=== PATIENT | male | born 1955 | race African-American/Black ===

== ENCOUNTER → 2016-10-02 | Outpatient (CLI) | payer MEDICARE ==
[~2016-10-02] MED LIST: ASPIRIN81 MG PO; AVANDAMET PO; BAYER CHEWABLE81 MG; BLOOD PRESSURE MED; CHOLESTEROL MED; FLEXERIL PO; FLEXERIL10 MG PO; GLUCOPHAGE; INSULIN SHOT; KEFLEX500 M1 PO; KETOPROFEN PO; LANTUS100 U/ML; LIPITOR PO; MOTRIN600 M1 PO; NORCO1 TAB 10/3 DOB; NORVASC PO; ORUDIS75 M1 PO; PEPCID AC20 M2 PO; ROBAXIN500 MG PO; VICODIN 5/1 TAB 5/50 PO; [UNRECOGNIZED DRUG - REMARK]
--- NOTE | ~2016-10-02 | US37 ---
[facility] A Service of [facility] RADIOLOGY TEXT RESULTS PATIENT: GIULIANA FLORES LOCATION: [facility] : 57 UNIT #: [id number] AGE: [address]: LEVY ECHEVARRIA SEX: M ORDER DR: [id number] [facility] [address] [place], [place] [address] [id number] MR#: [id number] Acc #: [id number] NAME: GIULIANA FLORES. : 1955 SEX: M STUDY DATE/TIME: 10/02/2016 15:19 UNIT: [facility] ROOM: STUDY DESCRIPTION: US Carotid W/Doppler Bilateral Attending Physician: Levy Rivas Od Referring Physician: Levy Rivas Od Ordering Physician: Levy Rivas Od Primary Care Physician: No Primary Care Physician MEDICAL IMAGING REPORT This report is preliminary unless electronic signature is present EXAM Carotid Doppler bilateral 10/02/2016 HISTORY Carotid stenosis. Blurred vision, loss of vision bilaterally for the past 6 months. Type 2 diabetes. Macular edema on physical examination 09/25/2016. Evaluate for carotid stenosis. TECHNIQUE Doan-scale carotid artery images were obtained, as well as Doppler waveform, spectral analysis, and color flow Doppler imaging. The examination was interpreted according to NASCET criteria. FINDINGS There is no hemodynamically significant stenosis in either carotid artery. Peak systolic velocity in the right and left internal carotid arteries is 123 cm/sec and 75 cm/sec, respectively. Antegrade blood flow is seen in both vertebral arteries. IMPRESSION No hemodynamically significant stenosis in either carotid artery. Dictated by... Geovanny Guzman M.D. THIS IS AN ELECTRONICALLY VERIFIED REPORT Geovanny Guzman M.D. at 10/04/2016 7:54 AM KEIRA/willie TD: 10/03/2016 13:40 JOB #: [id number] [facility] A Service [facility] RADIOLOGY TEXT RESULTS PATIENT: GIULIANA FLORES LOCATION: [facility] : 57 UNIT #: [id number] AGE: [address]: LEVY ECHEVARRIA SEX: M ORDER DR: MEDICAL IMAGING REPORT Page 1 of 1 COPY
== END | disposition home or self-care (01) ==
LOC: CNIV 15:00
DX: R09.89 Other specified symptoms and signs involving the circulatory and respiratory systems (principal); E11.3511 Type 2 diabetes mellitus with proliferative diabetic retinopathy with macular edema, right eye; E11.3592 Type 2 diabetes mellitus with proliferative diabetic retinopathy without macular edema, left eye
CPT/HCPCS: 93880